=== PATIENT | male | born 1960 | race Hispanic/Latino ===

== ENCOUNTER → 2018-04-07 14:32 | Outpatient (CLI) | payer OTHER, MEDICAID, SELFPAY | PROVIDERS: PCP Physician Assistant; Visit Provider Physician Assistant | DX: R39.198 Other difficulties with micturition (principal) | CPT/HCPCS: 87077; 87086; 87186 ==

== ENCOUNTER → 2018-04-07 16:29 | Outpatient (CLI) | payer OTHER, MEDICAID, SELFPAY | PROVIDERS: PCP Physician Assistant; Visit Provider Physician Assistant | DX: R81 Glycosuria (principal); R39.198 Other difficulties with micturition; Z53.9 Procedure and treatment not carried out, unspecified reason ==

== ENCOUNTER → 2018-04-09 16:58 | Outpatient (CLI) | payer OTHER, MEDICAID, SELFPAY ==
[2018-04-09 17:54] LABS: Alanine Aminotransferase 40 IU/L (21-72); Albumin 4.8 g/dL (3.5-5.0); Albumin Globulin Ratio 1.2 (1.0-2.8); Alkaline Phosphatase 83 U/L (38-126); Aspartate Aminotransferase 43 IU/L (17-59); BUN Creatinine Ratio 26.7 (6-22); Bilirubin Total 0.6 mg/dL (0.2-1.3); Blood Urea Nitrogen 24 mg/dL (9-20); Carbon Dioxide 28 mmol/L (22-32); Chloride 99 mmol/L (98-107); Estimated Glomerular Filt Rate > 60.0 mL/min (>60); Globulin 3.9 g/dL (1.7-4.1); Glucose 114 mg/dL (70-100); HEMOLYSIS 19 (0-50); Hemoglobin A1C% w Est Avg Glu 5.6 % (4.0-6.0); Potassium 4.4 mmol/L (3.4-5.1); Sodium 142 mmol/L (137-145); Total Protein 8.7 g/dL (6.3-8.2)
[2018-04-09 19:30] LABS: Creatinine Urine Random 187.6 mg/dL
[2018-04-09 19:35] LABS: Microalbumi Creatinin Ratio Ur 16.5 ug/mg CR (<30); Microalbumin Urine Random 3.1 mg/dL (0-1.6)
== END ==
PROVIDERS: PCP Physician Assistant; Visit Provider Physician Assistant
DX: R39.198 Other difficulties with micturition (principal); R81 Glycosuria
CPT/HCPCS: 36415; 80053; 82043; 82570; 83036; 84153

== ENCOUNTER → 2018-08-19 15:49 | Outpatient (CLI) | payer OTHER, MEDICAID, SELFPAY ==
[2018-08-19 16:19] LABS: Add Manual Diff / Slide Review NO; Basophils Percent Auto 0.9 % (0-2); Eosinophils Percent Auto 1.1 % (2-4); Hematocrit 45.1 % (41-53); Hemoglobin 15.2 g/dL (13.5-17.5); Lymphocytes Percent Auto 28.8 % (25-40); Mean Corpuscular HGB Conc 33.7 % (30-36); Mean Corpuscular Hemoglobin 31.9 PG (26-34); Mean Corpuscular Volume 94.5 fL (80-100); Monocytes Percent Auto 9.2 % (3-14); Neutrophils Absolute Auto 4700 /uL (3000-5900); Platelet Count 289 X10^3/uL (150-400); Red Blood Cell Count 4.78 X10^6/uL (4.5-5.9); Red Cell Distribution Width 13.9 % (11.6-14.8); White Blood Cell Count 7.9 X10^3/uL (4.5-11.0)
[2018-08-19 16:34] LABS: Alanine Aminotransferase 57 IU/L (21-72); Albumin 4.4 g/dL (3.5-5.0); Albumin Globulin Ratio 1.4 (1.0-2.8); Alkaline Phosphatase 67 U/L (38-126); Aspartate Aminotransferase 50 IU/L (17-59); BUN Creatinine Ratio 18.9 (6-22); Bilirubin Total 0.8 mg/dL (0.2-1.3); Blood Urea Nitrogen 17 mg/dL (9-20); Calcium 9.4 mg/dL (8.4-10.2); Carbon Dioxide 29 mmol/L (22-32); Chloride 102 mmol/L (98-107); Cholesterol 231 mg/dL (140-199); Estimated Glomerular Filt Rate > 60.0 mL/min (>60); Globulin 3.2 g/dL (1.7-4.1); Glucose 100 mg/dL (70-100); HDL Cholesterol 39 mg/dL (40-60); HEMOLYSIS < 15 (0-50); Potassium 3.9 mmol/L (3.4-5.1); Sodium 143 mmol/L (137-145); Total Protein 7.6 g/dL (6.3-8.2); Triglycerides 419 mg/dL (35-150)
== END ==
DX: Z13.220 Encounter for screening for lipoid disorders (principal); G62.9 Polyneuropathy, unspecified; R73.09 Other abnormal glucose; Z51.81 Encounter for therapeutic drug level monitoring
CPT/HCPCS: 36415; 80053; 80061; 85025

== ENCOUNTER 2018-12-14 18:56 | Emergency (ER) | payer OTHER, MEDICAID, SELFPAY ==
[2018-12-14 19:00] VITALS: BP 148/90; PULSE 95; RESP 16; O2SAT 100; BMI 28.3
--- NOTE | 2018-12-14 20:39 | DI.RAD.S_ITS ---
PROCEDURE: XR ELBOW RT MIN 3V INDICATIONS: GLF, rt elbow pain/swelling TECHNIQUE: 3 views of the elbow were acquired. COMPARISON: None. FINDINGS: Bones: No fractures or dislocations. No suspicious bony lesions. Soft tissues: No elbow joint effusion. No suspicious soft tissue calcifications. IMPRESSION: No acute fracture. No osseous lesion. If clinical suspicion and/or symptoms persist, further assessment with repeat plainfilms, or advanced imaging (e.g., CT, MRI, or bone scan) may be helpful for further assessment. Dictated by: Bo Marroquin M.D. on 12/14/2018 at 21:18 Approved by: Bo Marroquin M.D. on 12/14/2018 at 21:18
--- NOTE | 2018-12-14 20:41 | ED.FALL ---
HPI - Fall <Nano Chavez PA-C - Last Filed: 12/14/18 21:53> General Chief Complaint: Fall Stated Complaint: FALL RIGHT SIDE PAIN ELBOW,HIP,WRIST Time Seen by Provider: 12/14/18 19:09 Source: patient Mode of arrival: ambulatory Limitations: no limitations History of Present Illness HPI Narrative: This 58-year-old male slipped on the ice. His leg went out from under him, and he fell sideways after taking most of the brunt with his right elbow, then wrist. Then hit his right hip and ankle. He has had pain in these areas since and feels like especially his wrist and hand are swollen. He denies pain in the spine or lower back. Denies head or neck pain or any other injury or contusion such as LOC. He has chronic back pain and is on Ibu along with prn norco but hasn't taken any since early a.m. Related Data Previous Rx's Medication Instructions Recorded cyclobenzaprine 10 mg tablet 10 mg PO .hs PRN #30 tab 11/22/18 ibuprofen 800 mg tablet 800 mg PO QD-BID PRN #60 tab 11/22/18 varenicline 0.5 mg (11)-1 mg (42) See Label Instructions PO PER PKG 11/22/18 tablets in a dose pack DIR #53 each varenicline 1 mg tablet 1 mg PO BID #56 tab 11/22/18 hydrocodone 5 mg-acetaminophen 325 1 tab PO Q8H PRN #90 tab 11/23/18 mg tablet Allergies Allergy/AdvReac Type Severity Reaction Status Date / Time No Known Drug Allergies Allergy Verified 12/14/18 19:00 Review of Systems <Nano Chavez PA-C - Last Filed: 12/14/18 21:53> Review of Systems ROS Unobtainable: All systems reviewed & are unremarkable except as noted in HPI and below Exam <Nano Chavez PA-C - Last Filed: 12/14/18 21:53> Narrative Exam Narrative: GENERAL APPEARANCE: Patient sitting comfortably, in no distress. LUNGS: Clear to auscultation bilaterally. HEART: Rate and rhythm regular without murmur, normal S1 and S2, no S3 or S4. MUSCULOSKELETAL: No tenderness over the cervical, thoracic or lumbar spine. Tender over the right lateral inferior hip over the proximal TFL insertion and just distal to it. No tenderness elsewhere over the hip. Tender over the right inferior elbow on the ulnar side, tender over the right medial wrist and fingers and metacarpals. There is mild effusion over the wrist and hand. No tenderness over the lateral wrist and fingers. He has full range of motion of the right elbow but is tender with extension. Reduced range of motion of the right wrist in all alberto secondary to tenderness. Able to fully flex and extend the fingers with some tenderness. Right ankle tender just anterior to the lateral malleolus, no tenderness elsewhere. Full range of motion nonweightbearing. No tenderness over the metatarsals or toes. NEUROVASCULAR: Right hand fingers and toes are warm and pink, extremity pulses are intact, sensation is grossly intact Initial Vital Signs Initial Vital Signs: Vital Signs Pulse Rate 95 H 12/14/18 19:00 Respiratory Rate 16 12/14/18 19:00 Blood Pressure 148/90 H 12/14/18 19:00 Pulse Oximetry 100 12/14/18 19:00 <Farideh Uriostegui DO - Last Filed: 12/14/18 23:20> Initial Vital Signs Initial Vital Signs: Vital Signs Pulse Rate 95 H 12/14/18 19:00 Respiratory Rate 16 12/14/18 19:00 Blood Pressure 148/90 H 12/14/18 19:00 Pulse Oximetry 100 12/14/18 19:00 Course <Nano Chavez PA-C - Last Filed: 12/14/18 21:53> Orders Ordered: ED Orders 12/14/18 20:39 XR elbow RT min 3V Stat 12/14/18 20:40 XR hip RT 1V Stat XR wrist RT min 3V Stat 12/14/18 20:41 XR ankle RT min 3V Stat 12/14/18 20:49 XR hand RT min 3V Stat Discontinued Medications Hydrocodone Bitart/Acetaminophen (Webber 5/325) 1 tab PO NOW ONE Stop: 12/14/18 20:50 Last Admin: 12/14/18 21:10 Dose: 1 tab Ibuprofen (Advil) 800 mg PO NOW ONE Stop: 12/14/18 20:50 Last Admin: 12/14/18 21:10 Dose: 800 mg Vital Signs - 8 hr 12/14/18 19:00 Pulse Rate 95 H Respiratory Rate 16 Blood Pressure 148/90 H Pulse Oximetry 100 <Farideh Uriostegui DO - Last Filed: 12/14/18 23:20> Orders Ordered: ED Orders 12/14/18 20:39 XR elbow RT min 3V Stat 12/14/18 20:40 XR hip RT 1V Stat XR wrist RT min 3V Stat 12/14/18 20:41 XR ankle RT min 3V Stat 12/14/18 20:49 XR hand RT min 3V Stat Discontinued Medications Hydrocodone Bitart/Acetaminophen (Webber 5/325) 1 tab PO NOW ONE Stop: 12/14/18 20:50 Last Admin: 12/14/18 21:10 Dose: 1 tab Ibuprofen (Advil) 800 mg PO NOW ONE Stop: 12/14/18 20:50 Last Admin: 12/14/18 21:10 Dose: 800 mg Vital Signs - 8 hr 12/14/18 19:00 Pulse Rate 95 H Respiratory Rate 16 Blood Pressure 148/90 H Pulse Oximetry 100 MDM - Fall <Nano Chavez PA-C - Last Filed: 12/14/18 21:53> Imaging Data right UE: Radiologist's impression: Paul Santoyo - Patient Chart Chart Viewer Diagnostics DATE TYPE STATUS AUTHOR Hx 12/14/18 20:49 Marroquin,Muneer 12/14/18 20:41 Marroquin,Muneer 12/14/18 20:40 Marroquin,Muneer 12/14/18 20:40 Marroquin,Muneer 12/14/18 20:39 Marroquin,Muneer 03/03/18 13:00 [facility] MRI Cervical Spine Paul Santoyo 58, M0 1960 REG ER, ED - Main ED: R04 160.02cm 72.575kg BSA: 1.76m? BMI: 28.3kg/m? Fall Search Chart No Known Drug Allergies ONSET 06/21/17 06/18/17 06/18/17 06/09/17 Today 19:[address] [address] XRay Report Signed Patient: Paul Santoyo RMR#: [id number] : 1960Acct:[id number] Age/Sex: 58 / MDate of Service: 12/14/18 Loc: ED Accession Number: [id number] Procedure: XR hand RT min 3V Ordering Provider: Nano Chavez P.A-C PROCEDURE: XR HAND RT MIN 3V INDICATIONS: fall, medial pain TECHNIQUE: 3 views of the hand(s) acquired. COMPARISON: None. FINDINGS: Bones: No fractures or dislocations. Carpal bones are normally aligned. No suspicious bony lesions. Soft tissues: No suspicious soft tissue calcifications. IMPRESSION: No acute fracture. No osseous lesion. If clinical suspicion and/or symptoms persist, further assessment with repeat plainfilms, or advanced imaging (e.g., CT, MRI, or bone scan) may be helpful for further assessment. Dictated by: Bo Marroquin M.D. on 12/14/2018 at 21:20 Approved by: Bo Marroquin M.D. on 12/14/2018 at 21:20 Paul Santoyo - Patient Chart Chart Viewer Diagnostics DATE TYPE STATUS AUTHOR Hx 12/14/18 20:49 Marroquin,Muneer 12/14/18 20:41 Marroquin,Muneer 12/14/18 20:40 Marroquin,Muneer 12/14/18 20:40 Marroquin,Muneer 12/14/18 20:39 Marroquin,Muneer 03/03/18 13:00 [facility] MRI Cervical Spine NatanaelPérezPaul R 58, M0 1960 [facility] ER, ED - Main ED: R04 160.02cm 72.575kg BSA: 1.76m? BMI: 28.3kg/m? Fall Search Chart No Known Drug Allergies ONSET 06/21/17 06/18/17 06/18/17 06/09/17 Today 19:00 [place] [address] XRay Report Signed Patient: Pérez Santoyony RMR#: [id number] : 1960Acct:[id number] Age/Sex: 58 / MDate of Service: 12/14/18 Loc: ED Accession Number: [id number] Procedure: XR wrist RT min 3V Ordering Provider: Nano Chavez P.A-C PROCEDURE: XR WRIST RT MIN 3V INDICATIONS: GLF, rt wrist pain/swelling TECHNIQUE: 3 views of the wrist were acquired. COMPARISON: None. FINDINGS: Bones: No fractures or dislocations. No suspicious bony lesions. Scaphoid view: Not requested Soft tissues: No suspicious soft tissue calcifications. IMPRESSION: No acute fracture. No osseous lesion. If clinical suspicion and/or symptoms persist, further assessment with repeat plainfilms, or advanced imaging (e.g., CT, MRI, or bone scan) may be helpful for further assessment. Dictated by: Bo Marroquin M.D. on 12/14/2018 at 21:18 Approved by: Bo Marroquin M.D. on 12/14/2018 at 21:[address] [address] XRay Report Signed Patient: Paul Santoyo RMR#: [id number] : 1960Acct:[id number] Age/Sex: 58 / MDate of Service: 12/14/18 Loc: ED Accession Number: [id number] Procedure: XR elbow RT min 3V Ordering Provider: Nano Chavez P.A-C PROCEDURE: XR ELBOW RT MIN 3V INDICATIONS: GLF, rt elbow pain/swelling TECHNIQUE: 3 views of the elbow were acquired. COMPARISON: None. FINDINGS: Bones: No fractures or dislocations. No suspicious bony lesions. Soft tissues: No elbow joint effusion. No suspicious soft tissue calcifications. IMPRESSION: No acute fracture. No osseous lesion. If clinical suspicion and/or symptoms persist, further assessment with repeat plainfilms, or advanced imaging (e.g., CT, MRI, or bone scan) may be helpful for further assessment. Dictated by: Bo Marroquin M.D. on 12/14/2018 at 21:18 Approved by: Bo Marroquin M.D. on 12/14/2018 at 21:18 hip: Radiologist's impression: [address] [address] XRay Report Signed Patient: Paul Santoyo RMR#: [id number] : 1960Acct:[id number] Age/Sex: 58 / MDate of Service: 12/14/18 Loc: ED Accession Number: [id number] Procedure: XR hip RT 1V Ordering Provider: Nano Chavez P.A-C PROCEDURE: XR HIP RT 1V INDICATIONS: glf, rt hip pain TECHNIQUE: 1 views of the hip were acquired. COMPARISON: [facility], CR, XR HIP 2 VIEWS BILATERAL, 02/24/2018, 15:18. FINDINGS: Bones: No fractures or dislocations. No suspicious bony lesions. The visualized pelvic ring appears intact. Soft tissues: No suspicious soft tissue calcifications or masses. IMPRESSION: No acute fracture. No osseous lesion. If clinical suspicion and/or symptoms persist, further assessment with repeat plainfilms, or advanced imaging (e.g., CT, MRI, or bone scan) may be helpful for further assessment. Dictated by: Bo Marroquin M.D. on 12/14/2018 at 21:19 Approved by: Bo Marroquin M.D. on 12/14/2018 at 21:19 ankle: Radiologist's impression: [place] [address] XRay Report Signed Patient: Paul Santoyo R#: [id number] : 1960Acct:[id number] Age/Sex: 58 / MDate of Service: 12/14/18 Loc: ED Accession Number: [id number] Procedure: XR ankle RT min 3V Ordering Provider: Nano Chavez P.A-C PROCEDURE: XR ANKLE RT MIN 3V INDICATIONS: GLF, rt lateral ankle pain TECHNIQUE: 3 views of the ankle were acquired. COMPARISON: None. FINDINGS: Bones: No fractures or dislocations. Ankle mortise is normally aligned. No suspicious bony lesions. Soft tissues: No tibiotalar joint effusion. Achilles tendon appears normal. IMPRESSION: No acute fracture. No osseous lesion. If clinical suspicion and/or symptoms persist, further assessment with repeat plainfilms, or advanced imaging (e.g., CT, MRI, or bone scan) may be helpful for further assessment. Dictated by: Bo Marroquin M.D. on 12/14/2018 at 21:20 Approved by: Bo Marroquin M.D. on 12/14/2018 at 21:20 Discharge Plan Departure Patient Disposition: Home Clinical Impression: Contusion of multiple sites, Right wrist sprain Discharge Date/Time: 12/14/18 22:03 Interventions: ED Discharge Assessment Last Done: 12/14/18 22:03 Instructions: DI for Wrist Sprain, DI for Elbow Pain Activity Restrictions/Additional Instructions: Return if you have acutely worsening symptoms or new symptoms such as weakness in your extremities. Otherwise, gentle walking is fine as tolerated. Please wear the wrist immobilizer splint 01/06 to help rest the wrist and hand area for now. You can where the elbow wrap as needed for comfort. Please see your PCP in about a week for recheck, as we talked about you may need repeat x-rays if you are not feeling better. Sometimes fractures do not show up on initial x-rays. You can take your usual pain medicines at home Prescriptions: No Action varenicline 0.5 mg (11)- 1 mg (42) tablets,dose pack See Label Instructions PO PER PKG DIR Qty: 53 RF: 0 varenicline 1 mg tablet 1 mg PO BID Qty: 56 RF: 3 cyclobenzaprine 10 mg tablet 10 mg PO .hs PRN (Reason: muscle spasm) Qty: 30 RF: 3 ibuprofen 800 mg tablet 800 mg PO QD-BID PRN (Reason: pain) Qty: 60 RF: 3 hydrocodone-acetaminophen 5-325 mg tablet 1 tab PO Q8H PRN (Reason: pain) Qty: 90 RF: 0 Referrals: [facility] [Provider Group] <Farideh Uriostegui DO - Last Filed: 12/14/18 23:20> Cosign ED Attending Fe Attestation: I was immediately available in the department for consultation. Documentation has been reviewed. I agree with assessment and plan.
--- NOTE | 2018-12-14 20:49 | DI.RAD.S_ITS ---
PROCEDURE: XR HAND RT MIN 3V INDICATIONS: fall, medial pain TECHNIQUE: 3 views of the hand(s) acquired. COMPARISON: None. FINDINGS: Bones: No fractures or dislocations. Carpal bones are normally aligned. No suspicious bony lesions. Soft tissues: No suspicious soft tissue calcifications. IMPRESSION: No acute fracture. No osseous lesion. If clinical suspicion and/or symptoms persist, further assessment with repeat plainfilms, or advanced imaging (e.g., CT, MRI, or bone scan) may be helpful for further assessment. Dictated by: Bo Marroquin M.D. on 12/14/2018 at 21:20 Approved by: Bo Marroquin M.D. on 12/14/2018 at 21:20
--- NOTE | 2018-12-14 20:52 | ED_ITS ---
HPI - Fall <Nano Chavez PA-C - Last Filed: 12/14/18 21:53> General Chief Complaint: Fall Stated Complaint: FALL RIGHT SIDE PAIN ELBOW,HIP,WRIST Time Seen by Provider: 12/14/18 19:09 Source: patient Mode of arrival: ambulatory Limitations: no limitations History of Present Illness HPI Narrative: This 58-year-old male slipped on the ice. His leg went out from under him, and he fell sideways after taking most of the brunt with his right elbow, then wrist. Then hit his right hip and ankle. He has had pain in these areas since and feels like especially his wrist and hand are swollen. He denies pain in the spine or lower back. Denies head or neck pain or any other injury or contusion such as LOC. He has chronic back pain and is on [place] along with prn norco but hasn't taken any since early a.m. Related Data Previous Rx's Medication Instructions Recorded cyclobenzaprine 10 mg tablet 10 mg PO .hs PRN #30 tab 11/22/18 ibuprofen 800 mg tablet 800 mg PO QD-BID PRN #60 tab 11/22/18 varenicline 0.5 mg (11)-1 mg (42) See Label Instructions PO PER PKG 11/22/18 tablets in a dose pack DIR #53 each varenicline 1 mg tablet 1 mg PO BID #56 tab 11/22/18 hydrocodone 5 mg-acetaminophen 325 1 tab PO Q8H PRN #90 tab 11/23/18 mg tablet Allergies Allergy/AdvReac Type Severity Reaction Status Date / Time No Known Drug Allergies Allergy Verified 12/14/18 19:00 Review of Systems <Nano Chavez PA-C - Last Filed: 12/14/18 21:53> Review of Systems ROS Unobtainable: All systems reviewed & are unremarkable except as noted in HPI and below Exam <Nano Chavez PA-C - Last Filed: 12/14/18 21:53> Narrative Exam Narrative: GENERAL APPEARANCE: Patient sitting comfortably, in no distress. LUNGS: Clear to auscultation bilaterally. HEART: Rate and rhythm regular without murmur, normal S1 and S2, no S3 or S4. MUSCULOSKELETAL: No tenderness over the cervical, thoracic or lumbar spine. Tender over the right lateral inferior hip over the proximal TFL insertion and just distal to it. No tenderness elsewhere over the hip. Tender over the right inferior elbow on the ulnar side, tender over the right medial wrist and fingers and metacarpals. There is mild effusion over the wrist and hand. No tenderness over the lateral wrist and fingers. He has full range of motion of the right elbow but is tender with extension. Reduced range of motion of the right wrist in all alberto secondary to tenderness. Able to fully flex and extend the fingers with some tenderness. Right ankle tender just anterior to the lateral malleolus, no tenderness elsewhere. Full range of motion nonweightbearing. No tenderness over the metatarsals or toes. NEUROVASCULAR: Right hand fingers and toes are warm and pink, extremity pulses are intact, sensation is grossly intact Initial Vital Signs Initial Vital Signs: Vital Signs Pulse Rate 95 H 12/14/18 19:00 Respiratory Rate 16 12/14/18 19:00 Blood Pressure 148/90 H 12/14/18 19:00 Pulse Oximetry 100 12/14/18 19:00 <Farideh Uriostegui DO - Last Filed: 12/14/18 23:20> Initial Vital Signs Initial Vital Signs: Vital Signs Pulse Rate 95 H 12/14/18 19:00 Respiratory Rate 16 12/14/18 19:00 Blood Pressure 148/90 H 12/14/18 19:00 Pulse Oximetry 100 12/14/18 19:00 Course <Nano Chavez PA-C - Last Filed: 12/14/18 21:53> Orders Ordered: ED Orders 12/14/18 20:39 XR elbow RT min 3V Stat 12/14/18 20:40 XR hip RT 1V Stat XR wrist RT min 3V Stat 12/14/18 20:41 XR ankle RT min 3V Stat 12/14/18 20:49 XR hand RT min 3V Stat Discontinued Medications Hydrocodone Bitart/Acetaminophen ([place] 5/325) 1 tab PO NOW ONE Stop: 12/14/18 20:50 Last Admin: 12/14/18 21:10 Dose: 1 tab Ibuprofen (Advil) 800 mg PO NOW ONE Stop: 12/14/18 20:50 Last Admin: 12/14/18 21:10 Dose: 800 mg Vital Signs - 8 hr 12/14/18 19:00 Pulse Rate 95 H Respiratory Rate 16 Blood Pressure 148/90 H Pulse Oximetry 100 <Farideh Uriostegui DO - Last Filed: 12/14/18 23:20> Orders Ordered: ED Orders 12/14/18 20:39 XR elbow RT min 3V Stat 12/14/18 20:40 XR hip RT 1V Stat XR wrist RT min 3V Stat 12/14/18 20:41 XR ankle RT min 3V Stat 12/14/18 20:49 XR hand RT min 3V Stat Discontinued Medications Hydrocodone Bitart/Acetaminophen ([place] 5/325) 1 tab PO NOW ONE Stop: 12/14/18 20:50 Last Admin: 12/14/18 21:10 Dose: 1 tab Ibuprofen (Advil) 800 mg PO NOW ONE Stop: 12/14/18 20:50 Last Admin: 12/14/18 21:10 Dose: 800 mg Vital Signs - 8 hr 12/14/18 19:00 Pulse Rate 95 H Respiratory Rate 16 Blood Pressure 148/90 H Pulse Oximetry 100 MDM - Fall <Nano Chavez PA-C - Last Filed: 12/14/18 21:53> Imaging Data right UE: Radiologist's impression: Paul Santoyo - Patient Chart Chart Viewer Diagnostics DATE TYPE STATUS AUTHOR Hx 12/14/18 20:49 Marroquin,Muneer 12/14/18 20:41 Marroquin,Muneer 12/14/18 20:40 Marroquin,Muneer 12/14/18 20:40 Marroquin,Muneer 12/14/18 20:39 Marroquin,Muneer 03/03/18 13:00 [facility] MRI Cervical Spine Paul Santoyo 58, M0 1960 REG ER, ED - Main ED: R04 160.02cm 72.575kg BSA: 1.76m? BMI: 28.3kg/m? Fall Search Chart No Known Drug Allergies ONSET 06/21/17 06/18/17 06/18/17 06/09/17 Today 19:[address] [address] XRay Report Signed Patient: Paul Santoyo RMR#: [id number] : 1960Acct:[id number] Age/Sex: 58 / MDate of Service: 12/14/18 Loc: ED Accession Number: [id number] Procedure: XR hand RT min 3V Ordering Provider: Nano Chavez P.A-C PROCEDURE: XR HAND RT MIN 3V INDICATIONS: fall, medial pain TECHNIQUE: 3 views of the hand(s) acquired. COMPARISON: None. FINDINGS: Bones: No fractures or dislocations. Carpal bones are normally aligned. No suspicious bony lesions. Soft tissues: No suspicious soft tissue calcifications. IMPRESSION: No acute fracture. No osseous lesion. If clinical suspicion and/or symptoms persist, further assessment with repeat plainfilms, or advanced imaging (e.g., CT, MRI, or bone scan) may be helpful for further assessment. Dictated by: Bo Marroquin M.D. on 12/14/2018 at 21:20 Approved by: Bo Marroquin M.D. on 12/14/2018 at 21:20 Paul Santoyo - Patient Chart Chart Viewer Diagnostics DATE TYPE STATUS AUTHOR Hx 12/14/18 20:49 Marroquin,Muneer 12/14/18 20:41 Marroquin,Muneer 12/14/18 20:40 Marroquin,Muneer 12/14/18 20:40 Marroquin,Muneer 12/14/18 20:39 Marroquin,Muneer 03/03/18 13:00 [facility] MRI Cervical Spine NatanaelPérezPaul R 58, M0 1960 [facility] ER, ED - Main ED: R04 160.02cm 72.575kg BSA: 1.76m? BMI: 28.3kg/m? Fall Search Chart No Known Drug Allergies ONSET 06/21/17 06/18/17 06/18/17 06/09/17 Today 19:00 [place] [address] XRay Report Signed Patient: Pérez Santoyony RMR#: [id number] : 1960Acct:[id number] Age/Sex: 58 / MDate of Service: 12/14/18 Loc: ED Accession Number: [id number] Procedure: XR wrist RT min 3V Ordering Provider: Nano Chavez P.A-C PROCEDURE: XR WRIST RT MIN 3V INDICATIONS: GLF, rt wrist pain/swelling TECHNIQUE: 3 views of the wrist were acquired. COMPARISON: None. FINDINGS: Bones: No fractures or dislocations. No suspicious bony lesions. Scaphoid view: Not requested Soft tissues: No suspicious soft tissue calcifications. IMPRESSION: No acute fracture. No osseous lesion. If clinical suspicion and/or symptoms persist, further assessment with repeat plainfilms, or advanced imaging (e.g., CT, MRI, or bone scan) may be helpful for further assessment. Dictated by: Bo Marroquin M.D. on 12/14/2018 at 21:18 Approved by: Bo Marroquin M.D. on 12/14/2018 at 21:[address] [address] XRay Report Signed Patient: Paul Santoyo RMR#: [id number] : 1960Acct:[id number] Age/Sex: 58 / MDate of Service: 12/14/18 Loc: ED Accession Number: [id number] Procedure: XR elbow RT min 3V Ordering Provider: Nano Chavez P.A-C PROCEDURE: XR ELBOW RT MIN 3V INDICATIONS: GLF, rt elbow pain/swelling TECHNIQUE: 3 views of the elbow were acquired. COMPARISON: None. FINDINGS: Bones: No fractures or dislocations. No suspicious bony lesions. Soft tissues: No elbow joint effusion. No suspicious soft tissue calcifications. IMPRESSION: No acute fracture. No osseous lesion. If clinical suspicion and/or symptoms persist, further assessment with repeat plainfilms, or advanced imaging (e.g., CT, MRI, or bone scan) may be helpful for further assessment. Dictated by: Bo Marroquin M.D. on 12/14/2018 at 21:18 Approved by: Bo Marroquin M.D. on 12/14/2018 at 21:18 hip: Radiologist's impression: [address] [address] XRay Report Signed Patient: Paul Santoyo RMR#: [id number] : 1960Acct:[id number] Age/Sex: 58 / MDate of Service: 12/14/18 Loc: ED Accession Number: [id number] Procedure: XR hip RT 1V Ordering Provider: Nano Chavez P.A-C PROCEDURE: XR HIP RT 1V INDICATIONS: glf, rt hip pain TECHNIQUE: 1 views of the hip were acquired. COMPARISON: [facility], CR, XR HIP 2 VIEWS BILATERAL, 02/24/2018, 15 :18. FINDINGS: Bones: No fractures or dislocations. No suspicious bony lesions. The visualized pelvic ring appears intact. Soft tissues: No suspicious soft tissue calcifications or masses. IMPRESSION: No acute fracture. No osseous lesion. If clinical suspicion and/or symptoms persist, further assessment with repeat plainfilms, or advanced imaging (e.g., CT, MRI, or bone scan) may be helpful for further assessment. Dictated by: Bo Marroquin M.D. on 12/14/2018 at 21:19 Approved by: Bo Marroquin M.D. on 12/14/2018 at 21:19 ankle: Radiologist's impression: [place] [address] XRay Report Signed Patient: Paul Santoyo R#: [id number] : 1960Acct:[id number] Age/Sex: 58 / MDate of Service: 12/14/18 Loc: ED Accession Number: [id number] Procedure: XR ankle RT min 3V Ordering Provider: Nano Chavez P.A-C PROCEDURE: XR ANKLE RT MIN 3V INDICATIONS: GLF, rt lateral ankle pain TECHNIQUE: 3 views of the ankle were acquired. COMPARISON: None. FINDINGS: Bones: No fractures or dislocations. Ankle mortise is normally aligned. No suspicious bony lesions. Soft tissues: No tibiotalar joint effusion. Achilles tendon appears normal. IMPRESSION: No acute fracture. No osseous lesion. If clinical suspicion and/or symptoms persist, further assessment with repeat plainfilms, or advanced imaging (e.g., CT, MRI, or bone scan) may be helpful for further assessment. Dictated by: Bo Marroquin M.D. on 12/14/2018 at 21:20 Approved by: Bo Marroquin M.D. on 12/14/2018 at 21:20 Discharge Plan Departure Patient Disposition: Home Clinical Impression: Contusion of multiple sites, Right wrist sprain Discharge Date/Time: 12/14/18 22:03 Interventions: ED Discharge Assessment Last Done: 12/14/18 22:03 Instructions: DI for Wrist Sprain, DI for Elbow Pain Activity Restrictions/Additional Instructions: Return if you have acutely worsening symptoms or new symptoms such as weakness in your extremities. Otherwise, gentle walking is fine as tolerated. Please wear the wrist immobilizer splint 01/06 to help rest the wrist and hand area for now. You can where the elbow wrap as needed for comfort. Please see your PCP in about a week for recheck, as we talked about you may need repeat x- rays if you are not feeling better. Sometimes fractures do not show up on initial x-rays. You can take your usual pain medicines at home Prescriptions: No Action varenicline 0.5 mg (11)- 1 mg (42) tablets,dose pack See Label Instructions PO PER PKG DIR Qty: 53 RF: 0 varenicline 1 mg tablet 1 mg PO BID Qty: 56 RF: 3 cyclobenzaprine 10 mg tablet 10 mg PO .hs PRN (Reason: muscle spasm) Qty: 30 RF: 3 ibuprofen 800 mg tablet 800 mg PO QD-BID PRN (Reason: pain) Qty: 60 RF: 3 hydrocodone-acetaminophen 5-325 mg tablet 1 tab PO Q8H PRN (Reason: pain) Qty: 90 RF: 0 Referrals: [facility] [Provider Group] <Farideh Uriostegui DO - Last Filed: 12/14/18 23:20> Cosign ED Attending Fe Attestation: I was immediately available in the department for consultation. Documentation has been reviewed. I agree with assessment and plan.
[2018-12-14] MEDS: HYDROCODONE/ACET 5/325 TABLET 1 TAB PO (21:10)
[2018-12-14] MEDS: IBUPROFEN 400 MG TABLET 800 MG PO (21:10)
== END 2018-12-14 22:03 | disposition home or self-care (01) ==
PROVIDERS: Emergency Provider Internal Medicine; PCP Physician Assistant
DX: T07.XXXA Unspecified multiple injuries, initial encounter (principal); S63.501A Unspecified sprain of right wrist, initial encounter; W01.0XXA Fall on same level from slipping, tripping and stumbling without subsequent striking against object, initial encounter
CPT/HCPCS: 73080; 73110; 73130; 73501; 73610; 99283

== ENCOUNTER 2018-12-19 16:42 | Emergency (ER) | payer OTHER, MEDICAID, SELFPAY ==
[2018-12-19 16:45] VITALS: BP 138/92; PULSE 95; RESP 20; TEMP 37; O2SAT 100
--- NOTE | 2018-12-19 17:06 | ED.LOWEXIN ---
HPI - Extremity Injury (Lower) <Nano Chavez PA-C - Last Filed: 12/19/18 21:49> General Chief Complaint: Extremity Injury, Lower Stated Complaint: fall several days ago, hips hurt Time Seen by Provider: 12/19/18 17:02 Source: patient Mode of arrival: ambulatory Limitations: no limitations History of Present Illness HPI Narrative: This 58-year-old male returns to ED secondary to persistent low back and left hip pain. He fell on the ice last week and had multiple contusions. X-rays were negative for fracture. He has chronic low back pain and left leg weakness with herniated discs and is on [place] for that, however he states that the pain and weakness is worse in his left leg any feels like he is dragging his foot more. He states that he had a couple of episodes of incontinence on Thursday. He went to walk-in clinic and was referred here but he states that he never made it here or back to his PCP. He states he has not had any episodes of incontinence since, urinating normally, bowel movements normal. He denies any numbness in the groin. He denies any other new pain, paresthesia or weakness. He does have some chronic left-sided numbness that can radiate into his foot intermittently. Related Data Previous Rx's Medication Instructions Recorded cyclobenzaprine 10 mg tablet 10 mg PO .hs PRN #30 tab 11/22/18 ibuprofen 800 mg tablet 800 mg PO QD-BID PRN #60 tab 11/22/18 varenicline 0.5 mg (11)-1 mg (42) See Rx Instructions PO PER PKG DIR 11/22/18 tablets in a dose pack #53 each varenicline 1 mg tablet 1 mg PO BID #56 tab 11/22/18 hydrocodone 5 mg-acetaminophen 325 1 tab PO Q8H PRN #90 tab 11/23/18 mg tablet Allergies Allergy/AdvReac Type Severity Reaction Status Date / Time No Known Drug Allergies Allergy Verified 12/17/18 13:41 Review of Systems <Nano Chavez PA-C - Last Filed: 12/19/18 21:49> Review of Systems ROS Unobtainable: All systems reviewed & are unremarkable except as noted in HPI and below PFSH <Nano Chavez PA-C - Last Filed: 12/19/18 21:49> Social History Smoking Status: Current every day smoker Tobacco: How many years used: 45 quit status: considering quitting (will discuss with PCP.) second hand exposure: Yes alcohol intake: current (wine coolers one or two a day.) substance use type: marijuana Exam <Nano Chavez PA-C - Last Filed: 12/19/18 21:49> Narrative Exam Narrative: GENERAL APPEARANCE: Patient sitting comfortably, in no distress. PULMONARY: Lungs clear to auscultation bilaterally CV: Regular rhythm regular without murmur, normal S1 and S2, no S3 or S4 MUSCULOSKELETAL: No point tenderness over the lumbar spine. Paraspinal TTP mid lumbar spine. also tender over the left SI joint. he is able to flex the spine to 45?, able to fully extend, reduced bilateral rotation and lateral bend secondary to tenderness. Lower extremity strength 4+/5 bilateral hip flexors, knee extensors, foot plantar flexion with some giveaway weakness secondary to tenderness. Negative modified straight leg raise, negative Ac's test. He ambulates with a stiff gait but no clear foot drop NEUROLOGIC: Bilateral patellar and Achilles DTRs 2+ sensation over the lower extremities grossly intact Initial Vital Signs Initial Vital Signs: Vital Signs Temperature 98.6 F 12/19/18 16:45 Pulse Rate 95 H 12/19/18 16:45 Respiratory Rate 20 12/19/18 16:45 Blood Pressure 138/92 H 12/19/18 16:45 Pulse Oximetry 100 12/19/18 16:45 <Cici Badillo DO - Last Filed: 12/20/18 07:28> Initial Vital Signs Initial Vital Signs: Vital Signs Temperature 98.6 F 12/19/18 16:45 Pulse Rate 95 H 12/19/18 16:45 Respiratory Rate 20 12/19/18 16:45 Blood Pressure 138/92 H 12/19/18 16:45 Pulse Oximetry 100 12/19/18 16:45 Course <Nano Chavez PA-C - Last Filed: 12/19/18 21:49> Additional Information: There are no clear new neurologic findings on exam tonight, likely exacerbation of pre-existing problems due to fall. Advised patient on symptoms that need to be monitored for and he will return right away if any. Otherwise advised follow-up with his PCP as he may need further workup including repeat MRI if symptoms persist. He is agreeable Orders Ordered: Discontinued Medications Cyclobenzaprine HCl (Flexeril) 10 mg PO NOW ONE Stop: 12/19/18 17:54 Last Admin: 12/19/18 18:42 Dose: 10 mg Vital Signs - 8 hr 12/19/18 16:45 12/19/18 18:47 Temperature 98.6 F Pulse Rate 95 H 103 H Respiratory Rate 20 16 Blood Pressure 138/92 H Blood Pressure [Left Arm] 153/103 H Pulse Oximetry 100 <Cici Badillo DO - Last Filed: 12/20/18 07:28> Orders Ordered: Discontinued Medications Cyclobenzaprine HCl (Flexeril) 10 mg PO NOW ONE Stop: 12/19/18 17:54 Last Admin: 12/19/18 18:42 Dose: 10 mg Vital Signs - 8 hr 12/19/18 16:45 12/19/18 18:47 Temperature 98.6 F Pulse Rate 95 H 103 H Respiratory Rate 20 16 Blood Pressure 138/92 H Blood Pressure [Left Arm] 153/103 H Pulse Oximetry 100 MDM - Extremity Injury (Lower) <Nano Chavez PA-C - Last Filed: 12/19/18 21:49> Imaging Data hip: Radiologist's impression: [address] [address] XRay Report Signed Patient: Paul Santoyo RMR#: [id number] : 1960Acct:[id number] Age/Sex: 58 / MDate of Service: 12/19/18 Loc: ED Accession Number: [id number] Procedure: XR hip w pel if done LT 2V Ordering Provider: Nano Chavez P.A-C PROCEDURE: XR HIP W PEL IF DONE LT 2V INDICATIONS: posterior pain, recent fall TECHNIQUE: AP pelvis with lateral view(s) of the left hip(s). COMPARISON: None. FINDINGS: Bones: No fractures or dislocations. Pelvic ring appears intact. No suspicious bony lesions. Mild to moderate bilateral hip joint degeneration. Lower lumbar degenerative disc disease. Prominent exostosis projecting off the right iliac wing. Soft tissues: Surgical clips and staple line projects in the pelvis IMPRESSION: No fracture. Degenerative changes as above. Dictated by: Antonio Robles M.D. on 12/19/2018 at 18:11 Approved by: Antonio Robles M.D. on 12/19/2018 at 18:12 lumbar: Radiologist's impression: [address] [address] XRay Report Signed Patient: Paul Santoyo RMR#: [id number] : 1960Acct:[id number] Age/Sex: 58 / MDate of Service: 12/19/18 Loc: ED Accession Number: [id number] Procedure: XR lumbar spine 2-3V Ordering Provider: Nano Chavez P.A-C PROCEDURE: XR LUMBAR SPINE 2-3V INDICATIONS: repeat for persistent/increased pain s/p fall TECHNIQUE: 3 views of the lumbar spine were acquired. COMPARISON: None. FINDINGS: Bones: No fracture or focal osseous destruction. Straightening of the normal lumbar lordosis and grade 1 anterolisthesis of L4 and L5. Diffuse endplate sclerosis and spurring. Diffuse facet arthropathy. Mild narrowing of all the lumbar disc spaces except at L4-L5 where it is moderate in degree. Soft tissues: Overlying bowel gas pattern is normal. No suspicious soft tissue calcifications. IMPRESSION: No fracture identified. Multilevel lumbar degenerative disease, most pronounced at L4-L5. Grade 1 anterolisthesis of L4 on L5. Diffuse facet arthropathy. Dictated by: Antonio Robles M.D. on 12/19/2018 at 18:10 Approved by: Antonio Robles M.D. on 12/19/2018 at 18:11 Discharge Plan Departure Patient Disposition: Home Clinical Impression: Low back pain Qualifiers: Chronicity: unspecified Back pain laterality: unspecified Sciatica presence: with sciatica Sciatica laterality: sciatica of left side Qualified Code(s): M54.42 - Lumbago with sciatica, left side Lumbar strain Qualifiers: Encounter type: initial encounter Qualified Code(s): S39.012A - Strain of muscle, fascia and tendon of lower back, initial encounter Acute hip pain Qualifiers: Laterality: left Qualified Code(s): M25.552 - Pain in left hip Discharge Date/Time: 12/19/18 19:00 Interventions: ED Discharge Assessment Last Done: 12/19/18 18:59 Instructions: DI for Low Back Pain Activity Restrictions/Additional Instructions: there was no acute fracture or problem found on your repeat x-rays tonight. I think that your fall exacerbated your existing problems and pain, and if you keep having pain and numbness and weakness in your leg, you may need a repeat MRI. Please continue your usual pain medicines at home, and make sure you follow-up with your PCP in the next few days. Return as we talked about if you have acutely worsening symptoms such as numbness in her groin or inability to urinate. Prescriptions: No Action varenicline 0.5 mg (11)- 1 mg (42) tablets,dose pack See Rx Instructions PO PER PKG DIR Qty: 53 RF: 0 varenicline 1 mg tablet 1 mg PO BID Qty: 56 RF: 3 cyclobenzaprine 10 mg tablet 10 mg PO .hs PRN (Reason: muscle spasm) Qty: 30 RF: 3 ibuprofen 800 mg tablet 800 mg PO QD-BID PRN (Reason: pain) Qty: 60 RF: 3 hydrocodone-acetaminophen 5-325 mg tablet 1 tab PO Q8H PRN (Reason: pain) Qty: 90 RF: 0 Referrals: [facility] [Provider Group] <Cici Badillo DO - Last Filed: 12/20/18 07:28> [facility]: I was immediately available in the department for consultation. This documentation has been reviewed and I agree with assessment and plan. Supervised by Cici Badillo DO
--- NOTE | 2018-12-19 17:43 | DI.RAD.S_ITS ---
PROCEDURE: XR LUMBAR SPINE 2-3V INDICATIONS: repeat for persistent/increased pain s/p fall TECHNIQUE: 3 views of the lumbar spine were acquired. COMPARISON: None. FINDINGS: Bones: No fracture or focal osseous destruction. Straightening of the normal lumbar lordosis and grade 1 anterolisthesis of L4 and L5. Diffuse endplate sclerosis and spurring. Diffuse facet arthropathy. Mild narrowing of all the lumbar disc spaces except at L4-L5 where it is moderate in degree. Soft tissues: Overlying bowel gas pattern is normal. No suspicious soft tissue calcifications. IMPRESSION: No fracture identified. Multilevel lumbar degenerative disease, most pronounced at L4-L5. Grade 1 anterolisthesis of L4 on L5. Diffuse facet arthropathy. Dictated by: Antonio Robles M.D. on 12/19/2018 at 18:10 Approved by: Antonio Robles M.D. on 12/19/2018 at 18:11
--- NOTE | 2018-12-19 17:43 | DI.RAD.S_ITS ---
PROCEDURE: XR HIP W PEL IF DONE LT 2V INDICATIONS: posterior pain, recent fall TECHNIQUE: AP pelvis with lateral view(s) of the left hip(s). COMPARISON: None. FINDINGS: Bones: No fractures or dislocations. Pelvic ring appears intact. No suspicious bony lesions. Mild to moderate bilateral hip joint degeneration. Lower lumbar degenerative disc disease. Prominent exostosis projecting off the right iliac wing. Soft tissues: Surgical clips and staple line projects in the pelvis IMPRESSION: No fracture. Degenerative changes as above. Dictated by: Antonio Robles M.D. on 12/19/2018 at 18:11 Approved by: Antonio Robles M.D. on 12/19/2018 at 18:12
[2018-12-19] MEDS: CYCLOBENZAPRINE 10 MG TABLET PO (18:42)
--- NOTE | 2018-12-19 18:45 | PC.NURSE ---
slipped on ice , thursday at 4pm, landed on the right hip and elbow, now with back pain, bilateral hip pain, denies loc.
[2018-12-19 18:47] VITALS: BP 153/103; PULSE 103; RESP 16
== END 2018-12-19 19:00 | disposition home or self-care (01) ==
PROVIDERS: Emergency Provider Internal Medicine; PCP Physician Assistant
DX: M54.42 Lumbago with sciatica, left side (principal); S39.012A Strain of muscle, fascia and tendon of lower back, initial encounter; M25.552 Pain in left hip; W01.0XXA Fall on same level from slipping, tripping and stumbling without subsequent striking against object, initial encounter
CPT/HCPCS: 72100; 73502; 99282; 99283

== ENCOUNTER → 2019-02-23 12:35 | Outpatient (CLI) | payer OTHER, MEDICAID, SELFPAY ==
--- NOTE | 2019-02-23 | DI.MRI.S_ITS ---
PROCEDURE: MR LUMBAR SPINE WO CON INDICATIONS: Low back and bilateral hip pain TECHNIQUE: Noncontrast sagittal T1 spin echo and T2 fast echo, sagittal STIR, axial T1 and T2 fast spin echo through the lumbar spine. In cases with scoliosis, additional coronal T2 fast spin echo may be performed. COMPARISON: None. FINDINGS: Image quality: Excellent. Alignment and Curvature: There is grade I L4-L5 anterolisthesis secondary to facet hypertrophy. Bone Marrow: Marrow is of normal overall signal. No acute vertebral body compression fractures. Spinal Cord: Conus medullaris terminates at the L1 level. Visualized cord demonstrates normal signal and size. Paraspinous Soft Tissues: No paravertebral masses. L1-L2: Loss of disc signal and height. Moderate, diffuse disc bulge. Mild narrowing of the central canal. Moderate right and mild left neural foraminal narrowing. No neural impingement. L2-L3: Loss of disc signal. Moderate, diffuse disc bulge. Mild bilateral facet hypertrophy. Mild to moderate narrowing of the central canal. Moderate right and mild left neural foraminal narrowing. No neural impingement. L3-L4: Loss of disc signal slight loss of disc height. Moderate, diffuse disc bulge. Mild facet hypertrophy. Mild ligamentum flavum hypertrophy. Moderate narrowing of the central canal. Moderate bilateral neural foraminal narrowing. No neural impingement. L4-L5: Loss of disc signal and height. Mild, diffuse disc bulge. Severe facet hypertrophy. Severe narrowing of the central canal with compression of the nerve roots of the cauda equina. Mild right and moderate left neural foraminal narrowing. L5-S1: Loss of disc signal. Mild bilateral facet hypertrophy. No central stenosis. No neural foraminal narrowing. No neural impingement. IMPRESSION: 1. Grade I L4-L5 degenerative spondylolisthesis. 2. Multilevel degenerative disease 3. Multilevel facet arthropathy 4. Severe L4-L5 central canal stenosis with compression of the nerve roots of the cauda equina. Dictated by: Tati Vallejo MD, PhD on 02/23/2019 at 16:28 Approved by: Tati Vallejo MD, PhD on 02/23/2019 at 16:36
== END ==
PROVIDERS: PCP Student in an Organized Health Care Education/Training Program; Visit Provider Student in an Organized Health Care Education/Training Program
DX: M54.5 Low back pain (principal); M25.552 Pain in left hip; M25.551 Pain in right hip; M51.36 Other intervertebral disc degeneration, lumbar region; M48.061 Spinal stenosis, lumbar region without neurogenic claudication; M47.816 Spondylosis without myelopathy or radiculopathy, lumbar region; M47.817 Spondylosis without myelopathy or radiculopathy, lumbosacral region; M43.16 Spondylolisthesis, lumbar region
CPT/HCPCS: 72148

== ENCOUNTER → 2019-05-18 13:44 | Outpatient (CLI) | payer OTHER, MEDICAID, SELFPAY ==
[2019-05-18 14:10] LABS: Add Manual Diff / Slide Review NO; Basophils Absolute Auto 0 /uL (0-100); Basophils Percent Auto 0.3 % (0-2); Eosinophils Absolute Auto 100 /uL (0-450); Hematocrit 41.5 % (41-53); Hemoglobin 14.3 g/dL (13.5-17.5); Lymphocytes Absolute Auto 1500 /uL (1100-4500); Lymphocytes Percent Auto 21.5 % (25-40); Mean Corpuscular HGB Conc 34.5 % (30-36); Mean Corpuscular Hemoglobin 32.2 PG (26-34); Mean Corpuscular Volume 93.4 fL (80-100); Monocytes Absolute Auto 500 /uL (0-900); Monocytes Percent Auto 7.3 % (3-14); Neutrophils Absolute Auto 4800 /uL (1500-7000); Neutrophils Percent Auto 68.9 % (50-75); Platelet Count 320 X10^3/uL (150-400); Red Blood Cell Count 4.45 X10^6/uL (4.5-5.9)
[2019-05-18 14:30] LABS: Erythrocyte Sedimentation Rate 18 MM/HR (0-15)
[2019-05-18 14:45] LABS: Alanine Aminotransferase 65 IU/L (21-72); Albumin 4.2 g/dL (3.5-5.0); Albumin Globulin Ratio 1.3 (1.0-2.8); Alkaline Phosphatase 69 U/L (38-126); Aspartate Aminotransferase 59 IU/L (17-59); BUN Creatinine Ratio 18.8 (6-22); Bilirubin Total 0.7 mg/dL (0.2-1.3); Blood Urea Nitrogen 15 mg/dL (9-20); C-Reactive Protein Quant 0.7 mg/dL (<1.0); Calcium 9.5 mg/dL (8.4-10.2); Carbon Dioxide 27 mmol/L (22-32); Chloride 105 mmol/L (98-107); Creatine Kinase 720 U/L (55-170); Estimated Glomerular Filt Rate > 60.0 mL/min (>60); Globulin 3.3 g/dL (1.7-4.1); Glucose 113 mg/dL (70-100); HEMOLYSIS < 15 (0-50); Potassium 3.8 mmol/L (3.4-5.1); Sodium 140 mmol/L (137-145); Total Protein 7.5 g/dL (6.3-8.2)
[2019-05-18 15:32] LABS: TSH w/ Reflex to FT4 1.24 uIU/mL (0.47-4.68)
[2019-05-21 12:54] LABS: CK-BB NONE DETECTED % of total (NONE DETECTED); CK-MB 3 % of total (<5); CK-MM 85 % of total (95-100)
== END ==
PROVIDERS: PCP Student in an Organized Health Care Education/Training Program; Visit Provider Student in an Organized Health Care Education/Training Program
DX: R19.7 Diarrhea, unspecified (principal); R29.6 Repeated falls; R42 Dizziness and giddiness; R74.8 Abnormal levels of other serum enzymes
CPT/HCPCS: 36415; 80053; 82550; 82553; 84443; 85025; 85651; 86140

== ENCOUNTER → 2019-07-14 15:35 | Outpatient (CLI) | payer OTHER, MEDICAID, SELFPAY ==
[2019-07-18 13:59] LABS: Fecal Immunochemical Test NOT DETECTED (NOT DETECTED)
== END ==
PROVIDERS: PCP Student in an Organized Health Care Education/Training Program; Visit Provider Student in an Organized Health Care Education/Training Program
DX: Z12.11 Encounter for screening for malignant neoplasm of colon (principal)
CPT/HCPCS: 82274

== ENCOUNTER → 2019-07-28 16:06 | Outpatient (CLI) | payer OTHER, MEDICAID, SELFPAY ==
[2019-07-28 16:34] LABS: RBC Urine None Seen (0-5/HPF)
[2019-07-28 18:14] LABS: Appearance Urine UA CLOUDY; Bilirubin Urine UA NEGATIVE (NEGATIVE); Color Urine UA YELLOW; Glucose Urine UA NEGATIVE (Negative); Ketones Urine UA NEGATIVE (NEGATIVE); Leukocyte Esterase Urine UA TRACE (NEGATIVE); Nitrite Urine UA POSITIVE (Negative); Occult Blood Urine UA 3+ (Negative); Protein Urine UA TRACE (Negative); Specific Gravity Urine UA 1.025 (1.000-1.035); Urobilinogen Urine UA 0.2 E.U./dL (0.2); pH Urine UA 5.5 (4.5-8.0)
[2019-07-28 18:25] LABS: Bacteria Urine Many (>30); Culture Indicated Urine Specimen Cultured; WBC Urine 10-30/HPF (0-5/HPF)
== END ==
PROVIDERS: PCP Student in an Organized Health Care Education/Training Program; Visit Provider Student in an Organized Health Care Education/Training Program
DX: R39.89 Other symptoms and signs involving the genitourinary system (principal)
CPT/HCPCS: 81001; 87077; 87086; 87186

== ENCOUNTER → 2019-09-05 15:14 | Outpatient (CLI) | payer OTHER, MEDICAID, SELFPAY ==
--- NOTE | 2019-09-05 15:15 | DI.US.S_ITS ---
PROCEDURE: US ABDOMEN LIMITED INDICATIONS: RIGHT LOWER QUADRANT PAIN, RIGHT LOWER QUADRANT MASS TECHNIQUE: Real-time focused scanning was performed of the abdomen, with image documentation. COMPARISON: None. FINDINGS: Fully reducible, fat-containing right lumbar hernia. IMPRESSION: Right inguinal hernia. Dictated by: Perry KWOK Interpreted: Tati Vallejo MD on 09/05/2019 at 16:43 Approved by: Tati Vallejo MD, PhD on 09/05/2019 at 16:48
== END ==
PROVIDERS: PCP Student in an Organized Health Care Education/Training Program; Visit Provider Student in an Organized Health Care Education/Training Program
DX: R19.03 Right lower quadrant abdominal swelling, mass and lump (principal); R10.31 Right lower quadrant pain; K40.90 Unilateral inguinal hernia, without obstruction or gangrene, not specified as recurrent
CPT/HCPCS: 76705